=== PATIENT | female | born 1935 | race Caucasian/White ===

== ENCOUNTER 2020-09-05 10:09 | Observation (INO) ==
[2020-09-05 11:23] LABS: Hematocrit 22.3 % (35.3-44.9); Hemoglobin 6.8 g/dL (11.5-15.4); Lymphocytes # 0.9 K/mcL (0.6-4.6); Mean Corpuscular HGB Conc 30.5 g/dL (31.6-35.5); Mean Corpuscular Hemoglobin 34.5 pg (28.0-33.3); Mean Corpuscular Volume 113.2 fL (83.0-100.0); Mean Platelet Volume 11.4 fL (9.4-12.4); Platelet Count 398 K/mcL (140-400); Red Blood Count 1.97 M/mcL (3.82-4.97); Red Cell Distribution Width 27.1 % (11.5-14.5); White Blood Count 9.2 K/mcL (4.3-11.1)
[2020-09-05 11:33] LABS: INR 1.1; Prothrombin Time 13.2 Seconds (9.4-12.1)
[2020-09-05 11:36] LABS: Activated Partial Thrombo Time 26.4 Seconds (26.0-36.0)
[2020-09-05 11:39] LABS: Albumin/Globulin Ratio 0.8 (1.1-2.2); Bilirubin,Total 0.6 mg/dL (0.3-1.0); Calcium 8.7 mg/dL (8.6-10.3); Potassium 4.4 mEq/L (3.5-5.1)
[2020-09-05 12:03] LABS: Anisocytosis 3+ (Not Present); Eosinophils # 0.2 K/mcL (0.0-0.6); Macrocytosis Present (Not Present); Monocytes # 0.7 K/mcL (0.0-1.3); Neutrophils # 7.4 K/mcL (1.6-8.9); Platelet Estimate Normal (Normal)
[2020-09-05 12:04] LABS: Toxic Granulation Present (Not Present)
[2020-09-05] MEDS ORDERED: 0.9 % Sodium Chloride 250 ML ONE ×2 (14:15→18:22)
[2020-09-05] MEDS ORDERED: Naloxone 0.4 MG/ML INJ IVP PRN (16:48)
[2020-09-05] MEDS ORDERED: Ondansetron 4 MG/2 ML VIAL IVP PRN (16:48)
[2020-09-05 17:21] LABS: Hematocrit 24.5 % (35.3-44.9); Hemoglobin 7.6 g/dL (11.5-15.4)
[2020-09-05] MEDS: Pantoprazole 40 MG VIAL IVP SCH (19:01)
[2020-09-05] MEDS: Gabapentin 100 MG CAPSULE PO SCH (20:28)
[2020-09-05] MEDS: *HR* LORazepam 0.5 MG TABLET PO PRN (20:29)
[2020-09-06 00:37] LABS: Hematocrit 24.8 % (35.3-44.9); Hemoglobin 7.6 g/dL (11.5-15.4)
[2020-09-06 00:51] LABS: BUN/Creatinine Ratio 19 (6-26); Blood Urea Nitrogen 19 mg/dL (8-23); Calcium 7.8 mg/dL (8.6-10.3); Carbon Dioxide 25 mEq/L (23-29); Chloride 107 mEq/L (98-107); Glucose 94 mg/dL (70-105); Osmolality,Calculated 286 (280-300); Potassium 4.1 mEq/L (3.5-5.1); Sodium 137 mEq/L (136-145); eGFR For African Americans > 60 (> 60); eGFR For Non-African Americans 52 (> 60)
[2020-09-06 05:37] LABS: Basophils # 0.1 K/mcL (0.0-0.2); Basophils % 0.8 %; Eosinophils # 0.3 K/mcL (0.0-0.6); Eosinophils % 4.2 %; Hemoglobin 7.7 g/dL (11.5-15.4); Immature Granulocytes % 0.8 % (0-4); Lymphocytes % 15.4 %; Mean Corpuscular HGB Conc 30.8 g/dL (31.6-35.5); Mean Corpuscular Hemoglobin 32.4 pg (28.0-33.3); Mean Platelet Volume 11.3 fL (9.4-12.4); Monocytes # 0.9 K/mcL (0.0-1.3); Monocytes % 14.1 %; Platelet Count 296 K/mcL (140-400); Red Blood Count 2.38 M/mcL (3.82-4.97); Red Cell Distribution Width 25.9 % (11.5-14.5); Segmented Neutrophils % 64.7 %; White Blood Count 6.2 K/mcL (4.3-11.1)
[2020-09-06] MEDS: Pantoprazole 40 MG VIAL IVP SCH ×2 (05:45→18:51)
[2020-09-06 06:02] LABS: Anisocytosis 1+ (Not Present); Platelet Estimate Normal (Normal)
[2020-09-06] MEDS: (Ubidecarenone [Coq10] 50 MG Tab.Chew) PO SCH (10:51)
[2020-09-06] MEDS: lisinopriL 10 MG TABLET PO SCH (10:55)
[2020-09-06] MEDS: Cholecalciferol (D-3) 1,000 UNIT (25MCG) TABLET PO SCH (10:55)
[2020-09-06] MEDS: Cyanocobalamin (B-12) 1,000 MCG TABLET PO SCH (10:55)
[2020-09-06] MEDS: Gabapentin 100 MG CAPSULE PO SCH ×3 (10:55→21:34)
[2020-09-06] MEDS: *HR* LORazepam 0.5 MG TABLET PO PRN (21:34)
[2020-09-07 03:59] LABS: Hematocrit 24.4 % (35.3-44.9); Hemoglobin 7.6 g/dL (11.5-15.4); Mean Corpuscular HGB Conc 31.1 g/dL (31.6-35.5); Mean Corpuscular Hemoglobin 32.8 pg (28.0-33.3); Mean Corpuscular Volume 105.2 fL (83.0-100.0); Mean Platelet Volume 11.5 fL (9.4-12.4); Platelet Count 277 K/mcL (140-400); Red Blood Count 2.32 M/mcL (3.82-4.97)
[2020-09-07 04:14] LABS: BUN/Creatinine Ratio 18 (6-26); Blood Urea Nitrogen 19 mg/dL (8-23); Calcium 8.1 mg/dL (8.6-10.3); Carbon Dioxide 27 mEq/L (23-29); Chloride 108 mEq/L (98-107); Glucose 85 mg/dL (70-105); Osmolality,Calculated 288 (280-300); Potassium 3.8 mEq/L (3.5-5.1); Sodium 138 mEq/L (136-145); eGFR For African Americans > 60 (> 60); eGFR For Non-African Americans 51 (> 60)
[2020-09-07] MEDS: Pantoprazole 40 MG VIAL IVP SCH (05:57)
[2020-09-07 06:51] LABS: Bilirubin,Urine Negative (Negative); Blood,Urine Negative (Negative); Clarity,Urine Turbid (Clear); Color,Urine Yellow (Yellow); Glucose,Urine (UA) Normal (Normal); Ketones,Urine Negative (Negative); Leukocyte Esterase,Urine Large (Negative); Mucus,Urine Few per lpf (None-Few); Nitrite,Urine Negative (Negative); Protein,Urine 50 mg/dL (Neg-Trace); Specific Gravity,Urine 1.019 (1.010-1.025); Squamous Epithelial Cell,Urine Few per hpf (None-Few); WBC,Urine TNTC per hpf (0-3)
[2020-09-07] MEDS: Gabapentin 100 MG CAPSULE PO SCH ×2 (08:18→15:56)
[2020-09-07] MEDS: Cyanocobalamin (B-12) 1,000 MCG TABLET PO SCH (08:18)
[2020-09-07] MEDS: (Ubidecarenone [Coq10] 50 MG Tab.Chew) PO SCH (08:18)
[2020-09-07] MEDS: Cholecalciferol (D-3) 1,000 UNIT (25MCG) TABLET PO SCH (08:18)
[2020-09-07] MEDS: lisinopriL 10 MG TABLET PO SCH (08:18)
[2020-09-07] MEDS ORDERED: 0.9 % Sodium Chloride 250 ML IVC SCH (08:30)
[2020-09-07 10:32] VITALS: BP 131/66
[2020-09-07 13:41] LABS: Hematocrit 31.7 % (35.3-44.9)
[2020-09-07 13:44] LABS: Hemoglobin 9.8 g/dL (11.5-15.4)
[2020-09-07 15:58] LABS: % Iron Saturation 30 % (15-50); Iron 43 mcg/dL (50-170); Transferrin 102 mg/dL (203-362)
[2020-09-07 16:05] LABS: Ferritin 620 ng/mL (10-120)
== END 2020-09-07 16:40 | disposition home health service (06) ==
LOC: 3ANU 10:09 → EMEROOARM 10:09 → SUATTDRO 15:54 → 3ANU 17:21
PROVIDERS: ADMIT Family Medicine; ATTEND Family Medicine

== ENCOUNTER 2020-09-16 16:30 | Inpatient (IN) ==
[2020-09-16] MEDS ORDERED: 0.9 % Sodium Chloride 1,000 ML IVC ONE ×2 (16:49→17:35)
[2020-09-16] MEDS ORDERED: Isovue-370 500 ML BOTTLE IVP ONE (16:49)
[2020-09-16 17:20] LABS: Hematocrit 33.9 % (35.3-44.9); Hemoglobin 10.3 g/dL (11.5-15.4); Mean Corpuscular HGB Conc 30.4 g/dL (31.6-35.5); Mean Corpuscular Hemoglobin 32.1 pg (28.0-33.3); Mean Corpuscular Volume 105.6 fL (83.0-100.0); Mean Platelet Volume 12.5 fL (9.4-12.4); Nucleated Red Blood Cells 0.5 /100 WBC (0); Platelet Count 298 K/mcL (140-400); Red Blood Count 3.21 M/mcL (3.82-4.97); Red Cell Distribution Width 25.6 % (11.5-14.5); White Blood Count 3.8 K/mcL (4.3-11.1)
[2020-09-16] MEDS ORDERED: Piperacillin/Tazobactam 3.375 GM in Water for inj. (sterile) 20 ML IVP ONE (17:35)
[2020-09-16 18:01] LABS: Albumin 2.6 g/dL (3.5-5.7); Albumin/Globulin Ratio 0.7 (1.1-2.2); Bilirubin,Direct 0.2 mg/dL (0.0-0.2); Bilirubin,Indirect 0.7 mg/dL (0.0-1.0); Bilirubin,Total 0.9 mg/dL (0.3-1.0); Calcium 8.8 mg/dL (8.6-10.3); Globulin 3.7 g/dL (2.4-3.5); Magnesium 2.3 mg/dL (1.6-2.6); Potassium 4.5 mEq/L (3.5-5.1); Total Protein 6.3 g/dL (6.4-8.9); Troponin I 0.1 ng/mL (< 0.04)
[2020-09-16] MEDS ORDERED: Ondansetron 4 MG/2 ML VIAL IVP ONE (18:07)
[2020-09-16 18:19] LABS: Anisocytosis 3+ (Not Present); Basophils # 0.1 K/mcL (0.0-0.2); Large Platelets Present (Not Present); Lymphocytes # 0.7 K/mcL (0.6-4.6); Monocytes # 0.1 K/mcL (0.0-1.3); Neutrophils # 2.7 K/mcL (1.6-8.9); Platelet Estimate Normal (Normal)
[2020-09-16] MEDS ORDERED: Azithromycin 500 MG in 0.9 % Sodium Chloride 250 ML IVPB ONE (19:41)
[2020-09-16] MEDS ORDERED: Aspirin 325 MG TABLET PO ONE (19:44)
[2020-09-16] MEDS ORDERED: Ondansetron 4 MG/2 ML VIAL IVP PRN (19:45)
[2020-09-16] MEDS ORDERED: Acetaminophen 325 MG TABLET PO PRN (19:54)
[2020-09-16 20:13] LABS: INR 1.3; Prothrombin Time 15.3 Seconds (9.4-12.1)
[2020-09-16] MEDS ORDERED: Cefepime HCl 2,000 MG in Water for inj. (sterile) 20 ML IVP SCH ×2 (22:00→23:00)
[2020-09-16] MEDS ORDERED: Vancomycin 1 EACH in 0.9 % Sodium Chloride 250 ML IVPB PRN (22:00)
[2020-09-16] MEDS ORDERED: Ringers Solution, Lactated 1,000 ML IVC SCH (22:15)
[2020-09-16] MEDS ORDERED: *HR* Heparin 5,000 UNIT/ML VIAL IVP PRN (22:18)
[2020-09-16] MEDS ORDERED: *HR* Heparin 5,000 UNIT/ML VIAL IVP ONE (22:18)
[2020-09-17] MEDS ORDERED: Piperacillin/Tazobactam 3.375 GM in 0.9 % Sodium Chloride Mini Bag 100 ML IVPB SCH
[2020-09-17] MEDS: Heparin 25,000UNIT/250ML 1/2NS 25,000 UNIT/250 ML IV.SOLN IVC SCH ×2 (00:01→18:20)
[2020-09-17 03:33] LABS: Hematocrit 26.7 % (35.3-44.9); Mean Corpuscular Hemoglobin 31.9 pg (28.0-33.3); Mean Corpuscular Volume 106.4 fL (83.0-100.0); Mean Platelet Volume 12.5 fL (9.4-12.4); Platelet Count 236 K/mcL (140-400); Red Blood Count 2.51 M/mcL (3.82-4.97); Red Cell Distribution Width 25.7 % (11.5-14.5)
[2020-09-17 03:35] LABS: White Blood Count 7.7 K/mcL (4.3-11.1)
[2020-09-17 03:55] LABS: Calcium 7.8 mg/dL (8.6-10.3); Potassium 4.7 mEq/L (3.5-5.1)
[2020-09-17] MEDS: *HR* Heparin 5,000 UNIT/ML VIAL IVP PRN (07:20)
[2020-09-17] MEDS ORDERED: Dextrose Gel 15 GM/37.5 ML TUBE PO PRN ×2 (07:50)
[2020-09-17] MEDS ORDERED: D5% in Water 1,000 ML IVC PRN (07:50)
[2020-09-17] MEDS ORDERED: *HR* Dextrose 50 % in Water (Vial) 50 ML VIAL IVP PRN (07:50)
[2020-09-17] MEDS ORDERED: Ringers Solution, Lactated 1,000 ML IVC SCH (07:52)
[2020-09-17 07:53] LABS: Bilirubin,Urine Negative (Negative); Blood,Urine Moderate (Negative); Clarity,Urine Turbid (Clear); Color,Urine Yellow (Yellow); Glucose,Urine (UA) Normal (Normal); Ketones,Urine Negative (Negative); Leukocyte Esterase,Urine Large (Negative); Nitrite,Urine Negative (Negative); Protein,Urine 100 mg/dL (Neg-Trace); RBC,Urine 50-100 per hpf (0-3); Renal Epithelial Cells,Urine Few per hpf (None-Few); Specific Gravity,Urine > 1.030 (1.010-1.025); Squamous Epithelial Cell,Urine Few per hpf (None-Few); WBC,Urine TNTC per hpf (0-3)
[2020-09-17] MEDS: Piperacillin/Tazobactam 3.375 GM in 0.9 % Sodium Chloride Mini Bag 100 ML IVPB SCH (12:46)
[2020-09-17] MEDS: Insulin LISPRO 300 UNITS/3 ML VIAL SUBQ SCH ×2 (12:46→17:16)
[2020-09-17 14:13] LABS: Hematocrit 30.1 % (35.3-44.9); Hemoglobin 9.2 g/dL (11.5-15.4)
[2020-09-17] MEDS: Ringers Solution, Lactated 1,000 ML IVC SCH ×2 (14:25→19:26)
[2020-09-17 16:08] LABS: Adenovirus Not Detected (Not Detect); Coronavirus 229E Not Detected (Not Detect); Coronavirus HKU1 Not Detected (Not Detect); Coronavirus NL63 Not Detected (Not Detect); Coronavirus OC43 Not Detected (Not Detect); Human Metapneumovirus Not Detected (Not Detect); Human Rhinovirus/Enterovirus Not Detected (Not Detect); Influenza A Subtype 2009 H1 Not Detected (Not Detect); Influenza B Not Detected (Not Detect); Parainfluenza Virus 1 Not Detected (Not Detect); Parainfluenza Virus 2 Not Detected (Not Detect); Parainfluenza Virus 3 Not Detected (Not Detect); Parainfluenza Virus 4 Not Detected (Not Detect); Respiratory Syncytial Virus Not Detected (Not Detect); SARS-CoV-2 Not Detected (Not Detect)
[2020-09-17 16:09] LABS: Bordetella Pertussis Not Detected (Not Detect); Chlamydophila pneumoniae Not Detected (Not Detect); Mycoplasma pneumoniae Not Detected (Not Detect)
[2020-09-17] MEDS: Norepinephrine 4 MG/254 ML IV.SOLN IVC SCH (17:59)
[2020-09-17 19:32] LABS: Hematocrit 28.9 % (35.3-44.9); Hemoglobin 8.9 g/dL (11.5-15.4)
[2020-09-17] MEDS: polyethylene glycoL 3350 17 GM POWD.PACK PO SCH (19:47)
[2020-09-17] MEDS ORDERED: Bisacodyl 10 MG RECTAL SUPPOSITORY RC ONE (20:29)
[2020-09-18] MEDS: Insulin LISPRO 300 UNITS/3 ML VIAL SUBQ SCH ×5 (00:02→23:53)
[2020-09-18] MEDS: Piperacillin/Tazobactam 3.375 GM in 0.9 % Sodium Chloride Mini Bag 100 ML IVPB SCH ×3 (00:02→23:52)
[2020-09-18] MEDS ORDERED: Naloxone 0.4 MG/ML INJ IVP PRN (00:31)
[2020-09-18] MEDS: Norepinephrine 4 MG/254 ML IV.SOLN IVC SCH ×3 (03:21→21:12)
[2020-09-18 03:36] LABS: Hematocrit 24.4 % (35.3-44.9); Mean Corpuscular HGB Conc 29.9 g/dL (31.6-35.5); Mean Corpuscular Hemoglobin 31.6 pg (28.0-33.3); Mean Corpuscular Volume 105.6 fL (83.0-100.0); Mean Platelet Volume 12.6 fL (9.4-12.4); Platelet Count 269 K/mcL (140-400); Red Blood Count 2.31 M/mcL (3.82-4.97); Red Cell Distribution Width 26.4 % (11.5-14.5)
[2020-09-18 03:39] LABS: VBG Ionized Calcium 1.04 mmol/L (1.15-1.35)
[2020-09-18 03:46] LABS: Hemoglobin 7.3 g/dL (11.5-15.4); White Blood Count 12.6 K/mcL (4.3-11.1)
[2020-09-18 03:56] LABS: Albumin/Globulin Ratio 0.6 (1.1-2.2); Bilirubin,Direct 0.5 mg/dL (0.0-0.2); Bilirubin,Indirect 0.3 mg/dL (0.0-1.0); Bilirubin,Total 0.8 mg/dL (0.3-1.0); Calcium 7.7 mg/dL (8.6-10.3); Globulin 3.2 g/dL (2.4-3.5); Magnesium 2.4 mg/dL (1.6-2.6); Phosphorous 5.2 mg/dL (2.7-4.5); Potassium 4.7 mEq/L (3.5-5.1); Total Protein 5.2 g/dL (6.4-8.9)
[2020-09-18 04:09] LABS: Lymphocytes # 1.8 K/mcL (0.6-4.6); Neutrophils # 9.3 K/mcL (1.6-8.9)
[2020-09-18 04:10] LABS: Anisocytosis 2+ (Not Present); Large Platelets Present (Not Present); Platelet Estimate Normal (Normal); Poikilocytosis 2+ (Not Present)
[2020-09-18] MEDS: Calcium Gluconate 1gm/50mL 1 GM/50 ML BAG IVPB PRN ×3 (05:10→18:49)
[2020-09-18] MEDS ORDERED: Vancomycin 500 MG in 0.9 % Sodium Chloride Mini Bag 100 ML IVPB ONE (06:00)
[2020-09-18] MEDS: polyethylene glycoL 3350 17 GM POWD.PACK PO SCH ×2 (07:33→20:08)
[2020-09-18] MEDS ORDERED: Perflutren Lipid Microsphere 1.3 ML in 0.9 % Sodium Chloride 8.7 ML IVP PRN (07:33)
[2020-09-18] MEDS: Pantoprazole 40 MG VIAL IVP SCH (07:33)
[2020-09-18 09:33] LABS: VBG Ionized Calcium 1.06 mmol/L (1.15-1.35)
[2020-09-18 09:38] LABS: Hematocrit 24.6 % (35.3-44.9); Hemoglobin 7.4 g/dL (11.5-15.4)
[2020-09-18] MEDS: Ipratropium/Albuterol Neb 3 ML IH PRN ×2 (10:27→16:10)
[2020-09-18] MEDS: *HR* Heparin 5,000 UNIT/ML VIAL IVP PRN (12:54)
[2020-09-18 14:51] LABS: Hemoglobin 7.3 g/dL (11.5-15.4)
[2020-09-18 15:03] LABS: Calcium 8.1 mg/dL (8.6-10.3); Potassium 4.7 mEq/L (3.5-5.1)
[2020-09-18] MEDS ORDERED: Acetaminophen IV 1,000 MG/100 ML BAG IVPB ONE (15:16)
[2020-09-18 17:59] LABS: VBG Ionized Calcium 1.05 mmol/L (1.15-1.35)
[2020-09-18 18:13] LABS: Uric Acid 6.1 mg/dL (2.3-7.6)
[2020-09-18 18:51] LABS: Sodium, Urine 20.9 mEq/L
[2020-09-18] MEDS: Heparin 25,000UNIT/250ML 1/2NS 25,000 UNIT/250 ML IV.SOLN IVC SCH (21:10)
[2020-09-18 21:53] LABS: Hematocrit 23.2 % (35.3-44.9)
[2020-09-19] MEDS ORDERED: Norepinephrine 4 MG/254 ML IV.SOLN IVC SCH
[2020-09-19] MEDS: Norepinephrine 4 MG/254 ML IV.SOLN IVC SCH ×2 (02:44→09:30)
[2020-09-19 05:42] LABS: Hematocrit 23.7 % (35.3-44.9); Hemoglobin 7.1 g/dL (11.5-15.4); Mean Corpuscular Hemoglobin 32.4 pg (28.0-33.3); Mean Corpuscular Volume 108.2 fL (83.0-100.0); Mean Platelet Volume 12.6 fL (9.4-12.4); Platelet Count 298 K/mcL (140-400); Red Blood Count 2.19 M/mcL (3.82-4.97); Red Cell Distribution Width 26.5 % (11.5-14.5); White Blood Count 11.7 K/mcL (4.3-11.1)
[2020-09-19 05:54] LABS: Immature Reticulocyte % 14.7 % (11.0-38.0); Retculocyte # 0.02 M/mcL (0.05-0.10); Reticulocyte % 0.8 % (1.6-2.8)
[2020-09-19 05:55] LABS: INR 1.2; Prothrombin Time 14.2 Seconds (9.4-12.1)
[2020-09-19] MEDS: Insulin LISPRO 300 UNITS/3 ML VIAL SUBQ SCH ×2 (06:00→12:05)
[2020-09-19] MEDS: polyethylene glycoL 3350 17 GM POWD.PACK PO SCH (07:18)
[2020-09-19] MEDS: Pantoprazole 40 MG VIAL IVP SCH (07:18)
[2020-09-19 08:11] LABS: Folate 2.3 ng/mL (3.0-16.0); Vitamin B12 > 1500 pg/mL (250-1100)
[2020-09-19 09:42] LABS: Calcium 7.6 mg/dL (8.6-10.3); Magnesium 2.5 mg/dL (1.6-2.6); Phosphorous 5.8 mg/dL (2.7-4.5); Potassium 4.5 mEq/L (3.5-5.1)
[2020-09-19 09:52] LABS: VBG Ionized Calcium 1.01 mmol/L (1.15-1.35)
[2020-09-19 10:11] LABS: Calcium 7.7 mg/dL (8.6-10.3); Magnesium 2.6 mg/dL (1.6-2.6); Phosphorous 5.8 mg/dL (2.7-4.5); Potassium 4.5 mEq/L (3.5-5.1)
[2020-09-19] MEDS ORDERED: 0.9 % Sodium Chloride 250 ML IVC SCH (11:00)
[2020-09-19] MEDS: Piperacillin/Tazobactam 3.375 GM in 0.9 % Sodium Chloride Mini Bag 100 ML IVPB SCH (11:39)
[2020-09-19] MEDS ORDERED: Calcium Chloride 1,000 MG in 0.9 % Sodium Chloride 100 ML IVPB ONE (14:35)
[2020-09-19] MEDS ORDERED: Haloperidol Lactate 5 MG/ML VIAL IVP PRN (14:55)
[2020-09-19] MEDS ORDERED: Atropine 1% Opth Drops 100 DROP/5 ML BOTTLE SL PRN (14:56)
[2020-09-19] MEDS: *HR* FentaNYL (PF) 100 MCG/2 ML VIAL IVP PRN (18:11)
[2020-09-19] MEDS: *HR* LORazepam 2 MG/ML VIAL IVP PRN (18:11)
[2020-09-20] MEDS: *HR* FentaNYL (PF) 100 MCG/2 ML VIAL IVP PRN ×4 (08:15→18:25)
[2020-09-20] MEDS: *HR* LORazepam 2 MG/ML VIAL IVP PRN (08:17)
[2020-09-20] MEDS ORDERED: Haloperidol Lactate 5 MG/ML VIAL IVP PRN ×2 (12:18→13:37)
[2020-09-20] MEDS ORDERED: *HR* LORazepam 2 MG/ML VIAL IVP PRN (12:18)
[2020-09-20] MEDS ORDERED: *HR* FentaNYL (PF) 100 MCG/2 ML VIAL IVP PRN (12:18)
[2020-09-20] MEDS ORDERED: Atropine 1% Opth Drops 100 DROP/5 ML BOTTLE SL PRN (12:18)
[2020-09-20] MEDS: Haloperidol Oral Conc 10 MG/5 ML UDC PO SCH ×2 (15:58→18:17)
[2020-09-20 20:11] VITALS: BP 94/64
[2020-09-21] MEDS: Haloperidol Oral Conc 10 MG/5 ML UDC PO SCH
== END 2020-09-21 03:25 | disposition expired | DRG 871 ==
LOC: 3ANU 16:30 → EMEROOARM 16:30 → SUATTDRO 21:47 → 3ANU 22:43 → ICNU 09-17 16:24 → 2ANU 09-20 12:05
PROVIDERS: ADMIT Internal Medicine; ATTEND Internal Medicine